=== PATIENT | male | born 1965 | race Caucasian/White ===

== ENCOUNTER 2019-07-11 01:15 | Emergency (ER) | payer BC ==
[~2019-07-11] VITALS: Ht 162.6 cm; Wt 74.4 kg
[2019-07-11 01:55] VITALS: BP_SYST 134
[2019-07-11] MEDS ORDERED: NACL 0.9% 1,000 ML IV ONE (02:00)
[2019-07-11] MEDS ORDERED: KETOROLAC TROMETHAMINE 30 MG VIAL IVP ONE (02:00)
--- NOTE | 2019-07-11 02:08 | NUR ---
Patient to ER [facility] to [facility] for evaluation.
[2019-07-11] MEDS ORDERED: ONDANSETRON HCL 4 MG/2 ML VIAL IVP ONE (02:15)
--- NOTE | 2019-07-11 02:20 | NUR ---
#20 gauge angiocatheter placed to R hand. Use of asceptic technique. Tegaderm placed over site. Blood return noted. Blood for lab drawn from site. Flushed with 10 mL of normal saline. No evidence of infiltration noted. Patient tolerated well.
--- NOTE | 2019-07-11 02:20 | NUR ---
Patient MIRACLE x 4 is brought via wheelchair to ER [facility]1 with complaints of 03/03 RLQ abdominal/R flank pain with nausea and vomiting since 2199. Patient is diaphoretic, screaming in agony, and crouching in distress. Denies taking medication at home for symptom relief. He reports having recurring history of kidney stones and states that this pain "feels similar." Even chest rise and fall with respirations. Will continue to monitor.
[2019-07-11] MEDS ORDERED: MORPHINE 4 MG/ML INJ. SYRINGE IVP ONE (02:30)
--- NOTE | 2019-07-11 02:38 | NUR ---
Patient brought via wheelchair by histology technologist to CT scan.
--- NOTE | 2019-07-11 02:50 | NUR ---
Patient brought to ER bed 07 via wheelchair by sterile processing technologist. Patient is placed on BP cuff, pulse oximetry, and jr. systems administrator.
--- NOTE | 2019-07-11 02:52 | NUR ---
Patient is oxygenating at 86% on room air. Dr. Hagen made aware. Verbal order of 2 L oxygen via nasal cannula implemented. Oxygen saturation is improved to 98%.
[2019-07-11] MEDS ORDERED: KETAMINE 30 MG/3 ML SYRINGE IVP ONE (03:00)
[2019-07-11] MEDS ORDERED: LORazepam 2 MG/ML VIAL IVP ONE (03:00)
--- NOTE | 2019-07-11 03:05 | NUR ---
ER Dr. Hagen at bedside examining patient.
[2019-07-11 03:08] LABS: CALCIUM 8.9 mg/dL (8.4-11.0); CREATININE 1.46 mg/dL (0.55-1.30); POTASSIUM 3.8 mmol/L (3.5-5.1)
[2019-07-11 03:12] LABS: ALBUMIN 4.3 g/dL (3.4-4.8); TOTAL BILIRUBIN 0.3 mg/dL (0.0-1.0)
[2019-07-11 03:20] LABS: BASOPHILS % (AUTO) 0.2 % (0.0-2.0); EOSINOPHILS % (AUTO) 0.1 % (0.0-4.0); HEMATOCRIT 39.7 % (36-54); HEMOGLOBIN 13.4 g/dL (14.0-18.0); LYMPHOCYTES # (AUTO) 1.2 K/uL (1.0-5.5); MEAN CORPUSCULAR HEMOGLOBIN 31 pg (27-31); MEAN CORPUSCULAR HGB CONC 34 % (32-36); MEAN CORPUSCULAR VOLUME 90 fL (79.0-98.0); MONOCYTES # (AUTO) 0.4 K/uL (0.0-1.0); MONOCYTES % (AUTO) 3.2 % (1.7-9.3); NEUTROPHILS # (AUTO) 11.9 K/uL (1.8-7.7); NEUTROPHILS % (AUTO) 87.5 % (40.0-70.0); PLATELET COUNT (AUTO) 176 K/uL (130-430); RED BLOOD CELL COUNT(AUTO) 4.39 MIL/uL (4.2-6.2); WHITE BLOOD COUNT (AUTO) 13.6 K/uL (4.8-10.8)
--- NOTE | 2019-07-11 04:15 | NUR ---
Pt given urinal for provide urine sample. Pt reports mild relief of pain 6/10
--- NOTE | 2019-07-11 04:48 | NUR ---
# 18 FR straight catheter with use of sterile technique. Immediate return of 100 cc yellow urine noted. Urine sample collected and sent to lab. Pt tolerated procedure well.
[2019-07-11 05:08] LABS: BILIRUBIN,URINE NEGATIVE (NEGATIVE); BLOOD, URINE 3+ (NEGATIVE); CLARITY/URINE SL CLOUDY (CLEAR); COLOR,URINE YELLOW (YELLOW); GLUCOSE,URINE NEGATIVE (NEGATIVE); KETONES,URINE 1+ (NEGATIVE); LEUKOCYTE ESTERASE ,URINE 1+ (NEGATIVE); NITRITE, URINE NEGATIVE (NEGATIVE); PROTEIN URINE NEGATIVE (NEGATIVE); UROBILINOGEN,URINE 0.2 (0.2-1.0)
[2019-07-11 05:29] LABS: BACTERIA,URINE MODERATE /HPF (None Seen); RBC,URINE 20-50 /HPF (0-3)
[2019-07-11] MEDS ORDERED: cefTRIAXone 1 GM IVPB PREMIX 50 ML IV ONE (05:45)
--- NOTE | 2019-07-11 06:28 | NUR ---
Patient given written and verbal discharge instructions and verbalizes understanding. ER MD Hagen discussed with patient the results and treatment provided. Patient in stable condition. ID arm band removed. IV catheter removed intact and dressing applied, no active bleeding. Rx of Macrobid, [place] given. Patient educated on pain management and to follow up with PMD. Pain Scale 0. Opportunity for questions provided and answered. Medication side effect fact sheet provided.
[2019-07-11 06:33] VITALS: BP_SYST 108
== END 2019-07-11 06:33 | disposition home or self-care (01) ==
LOC: SED 01:15
DX: N23 Unspecified renal colic (principal); N28.9 Disorder of kidney and ureter, unspecified; N39.0 Urinary tract infection, site not specified; R11.2 Nausea with vomiting, unspecified; Z87.442 Personal history of urinary calculi
CPT/HCPCS: 36415; 74176; 80053; 81000; 83605; 83690; 85025; 87040; 87086; 96361; 96365; 96375; 99284; J0696; J1885; J2060; J2270; J2405; J7030